=== PATIENT | female | born 2000 | race African-American/Black ===

== ENCOUNTER 2023-09-22 02:00 | Emergency (ER) | payer MEDICAID ==
[2023-09-22 02:18] LABS: APPEARANCE,URINE SLT CLOUDY (Clear); BILIRUBIN,URINE NEGATIVE (Negative); COLOR,URINE YELLOW (Yellow); GLUCOSE,URINE NEGATIVE (Negative); KETONES,URINE NEGATIVE (Negative); LEUKOCYTE ESTERASE,URINE 1+ (Negative); NITRITE,URINE POSITIVE (Negative); OCCULT BLOOD,URINE 3+ (Negative); PH,URINE 7.5 (5.0-8.0); PROTEIN,URINE 2+ (Negative); UROBILINOGEN,URINE 0.2 (0.2-1.0)
[2023-09-22 02:26] LABS: RBC,URINE 40-50 /hpf (0-5); WBC,URINE 20-30 /hpf (0-5)
[2023-09-22 02:27] LABS: BACTERIA,URINE MODERATE /hpf (FEW); MUCUS,URINE FEW /hpf (FEW); SQUAMOUS EPITHELIAL CELLS,UR 0-5 /hpf (0-5)
== END 2023-09-22 02:51 | disposition home or self-care (01) ==
LOC: JD.ED 02:00
DX: N39.0 Urinary tract infection, site not specified (principal)
CPT/HCPCS: 81001; 81025; 87086; 87088; 87186; 99283